=== PATIENT | male | born 1955 | race Caucasian/White ===

== ENCOUNTER 2016-11-05 10:47 | Emergency (ER) | payer OTHER ==
--- NOTE | 2016-11-05 11:47 | Emergency Department Record ---
History of Present Illness - General Chief Complaint: Laceration(s) Stated Complaint: Nose laceration Time Seen by Provider: 11/05/16 10:55 Source: Patient, RN notes reviewed Mode of Arrival: Ambulatory - History of Present Illness Initial Commments: fell in yard 30 minutes prior to arrival and he cut his nose on beer can in two spots. 4 cm and 3 cm flap. No LOC, no nausea and no vomiting and walking without problems,neuro intact. Onset/Timin -: Minutes(s) Location: Face Context: Fall Associated Symptoms: None - [place] Coma Scale Eye Response: (4) Open spontaneously Motor Response: (6) Obeys commands Verbal Response: (5) Oriented Huseyin Total: 15 - Related Data Hx Tetanus Toxoid Vaccination: Yes Year of Tetanus Vaccination: 2011 Patient Tetanus UTD (within 5 yrs): No (2011) Home Medications Medication Instructions Recorded Confirmed Last Taken Unobtainable [Unobtainable] 11/05/16 11/05/16 Unknown Allergies Allergy/AdvReac Type Severity Reaction Status Date / Time No Known Drug Allergies Allergy Verified 11/05/16 11:25 Travel Screening - Travel/Exposure Within Last 30 Days Have you traveled within the last 30 days?: No - Travel/Exposure Within Last Year Have you traveled outside the [place] in the last year?: No - Additonal Travel Details Have you been exposed to anyone with a communicable illness?: No Review of Systems Reviewed: No additional complaints except as noted below Constitutional: Reports: As per HPI. Denies: Chills, Fever, Malaise, Night sweats, Weakness, Weight change Eyes: Reports: As per HPI. Denies: Eye discharge, Eye pain, Photophobia, Vision change ENT: Reports: As per HPI. Denies: Congestion, Dental pain, Ear pain, Epistaxis , Hearing loss, Throat pain Respiratory: Reports: As per HPI. Denies: Cough, Dyspnea, Hemoptysis, Stridor, Wheezes Cardiovascular: Reports: As per HPI. Denies: Arrhythmia, Chest pain, Dyspnea on exertion, Edema, Murmurs, Orthopnea, Palpitations, Paroxysmal nocturnal dyspnea, Rheumatic Fever, Syncope Endocrine: Reports: As per HPI. Denies: Fatigue, Heat or cold intolerance, Polydipsia, Polyuria Gastrointestinal: Reports: As per HPI. Denies: Abdominal pain, Constipation, Diarrhea, Hematemesis, Hematochezia, Melena, Nausea, Vomiting Genitourinary: Reports: As per HPI. Denies: Dysuria, Frequency, Hematuria, Incontinence, Retention, Testicular pain, Testicular mass, Urgency Musculoskeletal: Reports: As per HPI. Denies: Arthralgia, Back pain, Gout, Joint swelling, Myalgia, Neck pain Skin: Reports: As per HPI. Denies: Bruising, Change in color, Change in hair/ nails, Lesions, Pruritus, Rash Neurological: Reports: As per HPI. Denies: Abnormal gait, Confusion, Headache, Numbness, Paresthesias, Seizure, Tingling, Tremors, Vertigo, Weakness Psychiatric: Reports: As per HPI. Denies: Anxiety, Auditory hallucinations, Depression, Homicidal thoughts, Suicidal thoughts, Visual hallucinations Hematological/Lymphatic: Reports: As per HPI. Denies: Anemia, Blood Clots, Easy bleeding, Easy bruising, Swollen glands Past Medical History - SOCIAL HISTORY Smoking Status: Heavy tobacco smoker (>10/day) Alcohol Use: Heavy Drug Use: None - RESPIRATORY Hx Respiratory Disorders: No - CARDIOVASCULAR Hx Cardio Disorders: Yes Hx Hypertension: Yes Comment:: hyperlipidema - NEURO Hx Neuro Disorders: No - GI Hx GI Disorders: No - Hx Genitourinary Disorders: No - ENDOCRINE Hx Endocrine Disorders: No - MUSCULOSKELETAL Hx Musculoskeletal Disorders: No - PSYCH Hx Psych Problems: No - HEMATOLOGY/ONCOLOGY Hx Hematology/Oncology Disorders: No Family Medical History Any Significant Family History?: No Physical Exam - General General Appearance: Alert, Oriented x3, Cooperative, No acute distress - Head Head exam: Normal inspection - Eye Eye exam: Normal appearance, PERRL Pupils: Normal accommodation - ENT ENT exam: Normal exam, Mucous membranes moist, Normal external ear exam, Normal orophraynx, TM's normal bilaterally Ear exam: Normal external inspection. negative: External canal tenderness Nasal Exam: Normal inspection. negative: Discharge, Sinus tenderness Mouth exam: Normal external inspection, Tongue normal Teeth exam: Normal inspection. negative: Dental caries Throat exam: Normal inspection. negative: Tonsillar erythema, Tonsillar exudate - Neck Neck exam: Normal inspection, Full ROM. negative: Tenderness - Respiratory Respiratory exam: Normal lung sounds bilaterally. negative: Respiratory distress - Cardiovascular Cardiovascular Exam: Regular rate, Normal rhythm, Normal heart sounds - GI/Abdominal GI/Abdominal exam: Soft, Normal bowel sounds. negative: Tenderness - Rectal Rectal exam: Deferred - exam: Deferred - Extremities Extremities exam: Normal inspection, Full ROM, Normal capillary refill. negative: Tenderness - Back Back exam: Reports: Normal inspection, Full ROM. Denies: Muscle spasm, Rash noted, Tenderness - Neurological Neurological exam: Alert, Normal gait, Oriented X3, Reflexes normal - Psychiatric Psychiatric exam: Normal affect, Normal mood - Skin Skin exam: Other (laceration times two , 4cm and 3 cm flap) Course Vital Signs 11/05/16 10:53 Temperature 98.0 F Pulse Rate 75 Respiratory 18 Rate Blood Pressure 166/92 Pulse Ox 96 - Reevaluation(s) Reevaluation #1: laceration repair cleaned both lacerations with Shurclens 4 cm laceration repaired with 5.0 ethilon times 6 sutures 3 cm flap laceration repaired with 6.0 ethilon times 8 sutures !% lidocaine for anesthesia. 8 ml 11/05/16 12:09 Reevaluation #2: neuro recheck negative 11/05/16 12:15 Medical Decision Making - Data Complexity MDM Data: X-Ray Ordered and/or Reviewed (no displaced fractures some tiny chips) Disposition Disposition: Home, Self-Care Condition: (1) Good Instructions: Laceration (ED), Head Injury (ED) Additional Instructions: sutures out in 11 days wound care triple antibiotic ointment twice a day to lacerations Forms: Patient Portal Access Time of Disposition: 13:16 Quality - Quality Measures Quality Measures: N/A - Blood Pressure Screening Does Patient Have Any of the Following: No Blood Pressure Classification: Hypertensive Reading Systolic Measurement: 166 Diastolic Measurement: 92 Screening for High Blood Pressure: < First Hypertensive BP, F/U Documented > [ [id number]] First Hypertensive Follow-up Interventions: Referral to alternative/primary care provider.
--- NOTE | 2016-11-06 19:19 | RADIOLOGY REPORT ---
EXAM: NASAL BONES, THREE VIEWS. HISTORY: FALL, NASAL BONE INJURY AND PAIN. COMPARISON: None. FINDINGS: Two small ossific densities anterior to the bridge of the nose measuring up to 3 mm, which could relate to tiny chip fracture fragments or dystrophic calcification. No depressed nasal bone fracture. Nasal spine is intact. IMPRESSION: TWO TINY OSSIFIC DENSITIES ANTERIOR TO THE BRIDGE OF THE NOSE COULD RELATE TO CHIP FRACTURES OR NONSPECIFIC DYSTROPHIC CALCIFICATION. JOB NUMBER: [id number] MTDD
== END 2016-11-05 13:23 | disposition home or self-care (01) ==
LOC: ER 10:47
DX: S01.21XA Laceration without foreign body of nose, initial encounter (principal); W45.8XXA Other foreign body or object entering through skin, initial encounter; Y92.007 Garden or yard of unspecified non-institutional (private) residence as the place of occurrence of the external cause
CPT/HCPCS: 12014; 70160; 99283; 99284